=== PATIENT | female | born 1995 | race Two or more races ===

== ENCOUNTER 2021-08-19 13:55 | Emergency (ER) | payer BC ==
[~2021-08-19] VITALS: Ht 165.1 cm; Wt 86.2 kg
== END 2021-08-19 17:57 | disposition home or self-care (01) ==
LOC: ER 13:55
DX: S80.02XA Contusion of left knee, initial encounter (principal); W01.0XXA Fall on same level from slipping, tripping and stumbling without subsequent striking against object, initial encounter; Y93.9 Activity, unspecified; Y92.59 Other trade areas as the place of occurrence of the external cause; Y99.9 Unspecified external cause status